=== PATIENT | male | born 1975 | race Caucasian/White ===

== ENCOUNTER 2023-10-15 09:53 | Outpatient (CLI) | payer BC, SELFPAY | END 2023-10-15 09:54 | disposition home or self-care (01) | PROVIDERS: PCP Internal Medicine; Visit Provider Internal Medicine | DX: Z01.818 Encounter for other preprocedural examination (principal); I10 Essential (primary) hypertension; E78.5 Hyperlipidemia, unspecified; R74.8 Abnormal levels of other serum enzymes | CPT/HCPCS: 80053; 80061; 87086 ==

== ENCOUNTER 2024-03-12 09:59 | Outpatient (CLI) | payer BC, SELFPAY | END 2024-03-12 10:00 | disposition home or self-care (01) | PROVIDERS: PCP Family Medicine; Visit Provider Family Medicine | DX: I10 Essential (primary) hypertension (principal); Z12.5 Encounter for screening for malignant neoplasm of prostate | CPT/HCPCS: 80048; G0103 ==